=== PATIENT | female | born 1995 | race Caucasian/White ===

== ENCOUNTER 2024-11-04 18:10 | Outpatient (REF) | payer OTHER, SELFPAY ==
--- NOTE | 2024-11-04 14:40 | PAPFT_PTH ---
PATIENT: Shakira Multani LOC: [facility] U#:[id number] AGE/SX: 29/F ROOM: RE11/04/[address]: Aisha Peterson MD : [id number] BED: DIS: 11/04/2024 SPEC #: [id number] RECD: 11/04/24 18:13 STATUS: CATRINA REQ #: [id number] PEDRO PABLO: 11/04/24 14:[address]: Aisha Peterson DEPT: [facility] Cytology RECD BY: Pam Park ENTERED: 11/04/24 18:14 SP TYPE: PAPFT OT DR: Unknown,Unknown Tissues: 1 - CX/ENDOCX FOR PAP SMEARS Procedures: PAP THIN PREP/[facility] Screening HPV DNA PROBE Comments: [id number] (HPV 16 7 18/45)
== END 2024-11-04 18:11 | disposition home or self-care (01) ==
LOC: LBN 18:10
PROVIDERS: Visit Provider Obstetrics & Gynecology
DX: Z01.419 Encounter for gynecological examination (general) (routine) without abnormal findings (principal); Z31.9 Encounter for procreative management, unspecified
CPT/HCPCS: 88142; 87624

== ENCOUNTER 2024-11-29 14:14 | Outpatient (REF) | payer OTHER, SELFPAY ==
[2024-11-28 21:53] LABS: Calculated LDL 167 mg/dL (<100); Cholesterol 254 mg/dL (<200); HDL Cholesterol 45 mg/dL (40-60); Hemoglobin A1C 5.9 % (<5.7); Triglyceride 214 mg/dL (<150)
== END 2024-11-29 14:15 | disposition home or self-care (01) ==
LOC: NCHCN 14:14
PROVIDERS: Visit Provider Family Medicine
DX: E78.5 Hyperlipidemia, unspecified (principal); R73.01 Impaired fasting glucose
CPT/HCPCS: 80061; 83036

== ENCOUNTER 2025-05-06 09:02 | Outpatient (CLI) | payer OTHER, SELFPAY ==
[2025-05-06 09:58] LABS: Calculated LDL 152 mg/dL (<100); Cholesterol 230 mg/dL (<200); HDL Cholesterol 54 mg/dL (>or=50); Triglyceride 120 mg/dL (<150)
[2025-05-06 10:17] LABS: Hemoglobin A1C 5.5 % (<5.7)
== END 2025-05-06 09:03 | disposition home or self-care (01) ==
LOC: LBO 09:04
PROVIDERS: Visit Provider Family Medicine
DX: R73.03 Prediabetes (principal); E78.5 Hyperlipidemia, unspecified
CPT/HCPCS: 36415; 80061; 83036

== ENCOUNTER 2025-09-15 11:20 | Outpatient (REF) | payer OTHER, SELFPAY ==
[2025-09-15 15:55] LABS: TSH (W/Ref FT4) 0.76 uIU/mL (0.55-4.78)
[2025-09-15 16:19] LABS: HCG Quant, Pregnancy < 3 mIU/mL (1.5-4.2)
[2025-09-22 23:29] LABS: Testosterone, Free 2.0 pg/mL (0.1-6.4)
== END 2025-09-15 11:21 | disposition home or self-care (01) ==
LOC: NCHCN 11:20
PROVIDERS: Visit Provider Family Medicine
DX: N92.6 Irregular menstruation, unspecified (principal)
CPT/HCPCS: 84402; 84403; 84443; 84702